=== PATIENT | male | born 1990 | race Caucasian/White ===

== ENCOUNTER 2016-08-27 15:35 | Emergency (ER) | payer OTHER ==
[~2016-08-27] VITALS: Ht 175.3 cm; Wt 98.4 kg
[2016-08-27 15:35] VITALS: BP 137/81
[2016-08-27] MEDS ORDERED: DEBR6.5S4 AU (15:55)
[2016-08-27] MEDS ORDERED: CIPRODEX AU (16:27)
== END 2016-08-27 16:47 | disposition home or self-care (01) ==
LOC: M ED 16:13
DX: H61.23 Impacted cerumen, bilateral (principal); H60.313 Diffuse otitis externa, bilateral; Z88.2 Allergy status to sulfonamides